=== PATIENT | female | born 1965 | race Caucasian/White ===

== ENCOUNTER → 2016-08-07 | Outpatient (REF) | payer OTHER ==
[2016-08-07 12:18] LABS: ALBUMIN 3.4 GM/DL (3.2-5.2); ALBUMIN/GLOBULIN RATIO 0.89 (1.00-1.93); BILIRUBIN,TOTAL 0.5 MG/DL (0.2-1.0); CALCIUM LEVEL 8.3 MG/DL (8.5-10.1); CREATININE FOR GFR 1.16 MG/DL (0.55-1.02); FREE T4 1.37 NG/DL (0.76-1.46); GLOMERULAR FILTRATION RATE 52.2 (>51); POTASSIUM SERUM 4.4 MEQ/L (3.5-5.1); TOTAL PROTEIN 7.2 GM/DL (6.4-8.2)
== END | disposition home or self-care (01) ==
LOC: M SFHCPLAZ 08:09
PROVIDERS: ATTEND Nurse Practitioner Family
DX: E78.2 Mixed hyperlipidemia (principal); E03.9 Hypothyroidism, unspecified; E83.42 Hypomagnesemia

== ENCOUNTER → 2016-11-10 | Outpatient (REF) | payer OTHER ==
[2016-11-10 12:50] LABS: ALBUMIN 3.7 GM/DL (3.2-5.2); ALBUMIN/GLOBULIN RATIO 1.09 (1.00-1.93); BILIRUBIN,TOTAL 0.7 MG/DL (0.2-1.0); CALCIUM LEVEL 9.3 MG/DL (8.5-10.1); CREATININE FOR GFR 1.14 MG/DL (0.55-1.02); FREE T4 1.44 NG/DL (0.76-1.46); GLOMERULAR FILTRATION RATE 53.3 (>51); MAGNESIUM LEVEL 2.2 MG/DL (1.8-2.4); POTASSIUM SERUM 4.5 MEQ/L (3.5-5.1); TOTAL PROTEIN 7.1 GM/DL (6.4-8.2)
== END ==
LOC: M SFHCPLAZ 09:39
PROVIDERS: ATTEND Nurse Practitioner Family
DX: E78.2 Mixed hyperlipidemia (principal); E03.9 Hypothyroidism, unspecified; E83.42 Hypomagnesemia

== ENCOUNTER → 2016-11-10 | Outpatient (REF) | payer OTHER ==
[2016-11-10 12:51] LABS: ALBUMIN 3.6 GM/DL (3.2-5.2); ALBUMIN/GLOBULIN RATIO 1.03 (1.00-1.93); BILIRUBIN,TOTAL 0.7 MG/DL (0.2-1.0); CALCIUM LEVEL 9.3 MG/DL (8.5-10.1); CREATININE FOR GFR 1.15 MG/DL (0.55-1.02); GLOMERULAR FILTRATION RATE 52.8 (>51); POTASSIUM SERUM 4.4 MEQ/L (3.5-5.1); TOTAL PROTEIN 7.1 GM/DL (6.4-8.2)
[2016-11-10 12:59] LABS: BASO % 0.5 % (0.0-1.0); EOS # 0.2 K/mm3 (0.0-0.50); EOS % 2.2 % (0.0-3.0); LARGE UNSTAINED CELL # 0.2 K/mm3 (0.0-0.4); LARGE UNSTAINED CELL % 1.8 % (0.0-4.0); LYMPH # 2.3 K/mm3 (1.5-4.5); LYMPH % 28.9 % (24.0-44.0); MEAN CORPUSCULAR HEMOGLOBIN 30.2 pg (27.0-33.0); MEAN CORPUSCULAR HGB CONC 33.3 g/dl (32.0-36.5); MEAN CORPUSCULAR VOLUME 90.8 fl (80.0-96.0); MONO # 0.5 K/mm3 (0.0-0.8); MONO % 5.6 % (0.0-5.0); NEUTROPHILS # 4.8 K/mm3 (1.8-7.7); NEUTROPHILS % 60.9 % (36.0-66.0); PLATELET COUNT, AUTOMATED 253 k/mm3 (150-450)
[2016-11-10 13:29] LABS: ERYTHROCYTE SEDIMENTATION RATE 22 mm/hr (0-30)
== END ==
LOC: M LAB REF 09:00
PROVIDERS: ATTEND Internal Medicine Rheumatology
DX: M05.79 Rheumatoid arthritis with rheumatoid factor of multiple sites without organ or systems involvement (principal)

== ENCOUNTER → 2017-05-09 | Outpatient (REF) | payer OTHER ==
[2017-05-09 12:26] LABS: FOLATE > 24.0 NG/ML; VITAMIN B12 LEVEL 1609 PG/ML
[2017-05-09 12:35] LABS: ALBUMIN 3.6 GM/DL (3.2-5.2); ALBUMIN/GLOBULIN RATIO 1.06 (1.00-1.93); ALKALINE PHOSPHATASE 92 U/L (45-117); ALT/SGPT 31 U/L (12-78); ANION GAP 6 MEQ/L (8-16); AST/SGOT 19 U/L (15-37); BILIRUBIN,TOTAL 0.5 MG/DL (0.2-1.0); BLOOD UREA NITROGEN 16 MG/DL (7-18); CALCIUM LEVEL 9.1 MG/DL (8.5-10.1); CARBON DIOXIDE LEVEL 28 MEQ/L (21-32); CHLORIDE LEVEL 110 MEQ/L (98-107); CHOLESTEROL LEVEL 209 MG/DL (<200); CREATININE FOR GFR 1.14 MG/DL (0.55-1.02); FREE T4 1.37 NG/DL (0.76-1.46); GLOMERULAR FILTRATION RATE 53.1 (>51); GLUCOSE, FASTING 69 MG/DL (70-105); MAGNESIUM LEVEL 2.1 MG/DL (1.8-2.4); POTASSIUM SERUM 4.2 MEQ/L (3.5-5.1); SODIUM LEVEL 144 MEQ/L (136-145); TRIGLYCERIDES LEVEL 154 MG/DL (<150)
== END ==
LOC: M SFHCPLAZ 08:02
PROVIDERS: ATTEND Nurse Practitioner Family
DX: E78.2 Mixed hyperlipidemia (principal); E03.9 Hypothyroidism, unspecified; E83.42 Hypomagnesemia; Z98.84 Bariatric surgery status

== ENCOUNTER → 2018-03-13 | Outpatient (CLI) | payer BC | LOC: M WHC 13:10 | DX: Z12.31 Encounter for screening mammogram for malignant neoplasm of breast (principal) | CPT/HCPCS: 77067 ==

== ENCOUNTER → 2018-03-13 | Outpatient (REF) | payer OTHER ==
[2018-03-15 14:46] LABS: HPV HYBRID CAPTURE II Negative (Negative)
== END ==
LOC: M SFHCWAGY 13:42
DX: Z12.4 Encounter for screening for malignant neoplasm of cervix (principal)
CPT/HCPCS: G0123

== ENCOUNTER → 2018-05-09 | Outpatient (REF) | payer OTHER ==
[2018-05-09 14:18] LABS: ALBUMIN 3.5 GM/DL (3.2-5.2); ALBUMIN/GLOBULIN RATIO 0.97 (1.00-1.93); ALKALINE PHOSPHATASE 113 U/L (45-117); ALT/SGPT 36 U/L (12-78); ANION GAP 7 MEQ/L (8-16); AST/SGOT 26 U/L (7-37); BILIRUBIN,TOTAL 0.6 MG/DL (0.2-1.0); BLOOD UREA NITROGEN 15 MG/DL (7-18); CALCIUM LEVEL 8.7 MG/DL (8.5-10.1); CARBON DIOXIDE LEVEL 26 MEQ/L (21-32); CHLORIDE LEVEL 111 MEQ/L (98-107); CHOLESTEROL LEVEL 197 MG/DL (<200); CHOLESTEROL RISK RATIO 3.581 (<5); CREATININE FOR GFR 1.34 MG/DL (0.55-1.30); GLOMERULAR FILTRATION RATE 43.9 (>51); GLUCOSE, FASTING 72 MG/DL (70-100); HDL CHOLESTEROL 55 MG/DL (>40); LDL CHOLESTEROL 113 MG/DL (<100); MAGNESIUM LEVEL 2.2 MG/DL (1.8-2.4); NON-HDL-C 142 MG/DL; POTASSIUM SERUM 4.7 MEQ/L (3.5-5.1); SODIUM LEVEL 144 MEQ/L (136-145); TOTAL 25(OH) VITAMIN D 43.6 NG/ML (30.0-100.0); TOTAL PROTEIN 7.1 GM/DL (6.4-8.2); TRIGLYCERIDES LEVEL 145 MG/DL (<150); VITAMIN B12 LEVEL > 2000.0 PG/ML
[2018-05-09 22:45] LABS: FOLATE > 24.0 NG/ML
== END ==
LOC: M SFHCPLAZ 08:05
DX: E78.2 Mixed hyperlipidemia (principal); E03.9 Hypothyroidism, unspecified; E83.42 Hypomagnesemia; Z98.84 Bariatric surgery status
CPT/HCPCS: 82746

== ENCOUNTER → 2019-03-14 | Outpatient (CLI) | payer BC ==
--- NOTE | 2019-03-14 15:55 | REPMRS ---
Patient History The patient states she had a clinical breast exam in 02/2019. Patient is postmenopausal and is nulliparous. Family history of breast cancer at age 56 in sister. Digital Woman Screen Mammo: March 14, 2019 - Exam #: [id number] Bilateral CC and MLO view(s) were taken. Technologist: Paula Montalvo Technologist Prior study comparison: March 13, 2018, bilateral digital woman screen mammo performed at [facility]. September 24, 2014, digital woman screen mammo performed at [facility]. May 07, 2012, digital woman screen mammo performed at [facility]. FINDINGS: There are scattered fibroglandular densities. There has been no change in the appearance of the mammogram from the prior studies. There is a mild amount of scattered fibroglandular density which is fairly symmetric. There is no interval development of dominant mass, architectural distortion, or grouped microcalcification suggestive of malignancy. 3-D tomosynthesis shows no additional findings. Assessment: BI-RADS/ACR category 1 mammogram. Negative Mammogram. Recommendation Routine screening mammogram of both breasts in 1 year (for women over age 40). This patient's Lifetime Breast Cancer Risk is estimated at 18.9 %. This mammogram was interpreted with the aid of an FDA-approved computer-aided dectection system. Electronically Signed By: Aiden Patel MD 03/14/19 [id number]
== END ==
LOC: M WHC 13:27
PROVIDERS: ATTEND Nurse Practitioner Women's Health
DX: Z12.31 Encounter for screening mammogram for malignant neoplasm of breast (principal)

== ENCOUNTER → 2019-05-14 | Outpatient (REF) | payer OTHER ==
[2019-05-14 11:20] LABS: ALBUMIN 3.5 GM/DL (3.2-5.2); BILIRUBIN,TOTAL 0.7 MG/DL (0.2-1.0); CALCIUM LEVEL 8.9 MG/DL (8.5-10.1); CHOLESTEROL RISK RATIO 3.965 (<5); CREATININE FOR GFR 1.24 MG/DL (0.55-1.30); FREE T4 1.21 NG/DL (0.76-1.46); GLOMERULAR FILTRATION RATE 47.8 (>51); POTASSIUM SERUM 4.1 MEQ/L (3.5-5.1); THYROID STIMULATING HORMONE 3.13 uIU/ML (0.358-3.740); TOTAL PROTEIN 6.8 GM/DL (6.4-8.2)
== END ==
LOC: M SFHCPLAZ 07:56
PROVIDERS: ATTEND Nurse Practitioner Family
DX: N18.3 Chronic kidney disease, stage 3 (moderate) (principal); E03.9 Hypothyroidism, unspecified; E78.2 Mixed hyperlipidemia

== ENCOUNTER → 2019-09-08 | Outpatient (CLI) | payer BC, OTHER ==
[~2019-09-08] MED LIST: PROHANCE 279.3MG/ML 15ML VIAL (A9576) As Ordered ONE; PROHANCE 279.3MG/ML 5ML VIAL (A9576) As Ordered ONE
--- NOTE | 2019-09-08 13:06 | REP ---
Bilateral breast MRI study without and with IV gadolinium: History: Positive family history of breast carcinoma. Screening exam. Comparison mammography March 14, 2019. Technique: Three [place] MRI imaging was performed with a dedicated breast coil. Axial, coronal, and sagittal T1 and T2-weighted scans were obtained with and without fat saturation in the usual fashion. The study includes dynamically acquired post gadolinium enhanced imaging subtraction imaging. Maximal intensity projection and multiplanar re-formation imaging is included as well. The study was interpreted with the aid of naayaD, an FDA approved computer-aided detection (CAD) software program, on a dedicated breast MRI work station. The gadolinium enhancement dose is 20 mL of intravenous ProHance. Findings: Scattered fibroglandular elements is seen bilaterally. There is a mild pattern of background parenchymal enhancement. There is no evidence of axillary adenopathy or breast cystic changes. There is no suspicious morphologic abnormality in either breast on high-resolution pre and postcontrast images. Dynamically acquired sequential post contrast images show no suspicious area of enhancement and/or washout in either breast to suggest malignancy. Subtraction images are unremarkable. Impression: BIRADS category 1 negative bilateral breast MRI scanning. Electronically Signed by Merrill Patel MD 09/08/2019 05:25 P
== END ==
LOC: M RAD 09:31
PROVIDERS: ATTEND Nurse Practitioner Women's Health
DX: Z80.3 Family history of malignant neoplasm of breast (principal)
CPT/HCPCS: A9576; C8908

== ENCOUNTER → 2019-11-14 | Outpatient (REF) | payer OTHER ==
[2019-11-14 10:42] LABS: ALBUMIN 3.6 GM/DL (3.2-5.2); BILIRUBIN,TOTAL 0.7 MG/DL (0.2-1.0); CALCIUM LEVEL 9.4 MG/DL (8.5-10.1); CHOLESTEROL RISK RATIO 3.964 (<5); CREATININE FOR GFR 1.34 MG/DL (0.55-1.30); FREE T4 1.36 NG/DL (0.76-1.46); GLOMERULAR FILTRATION RATE 43.7 (>51); POTASSIUM SERUM 4.1 MEQ/L (3.5-5.1); THYROID STIMULATING HORMONE 2.42 uIU/ML (0.358-3.740); TOTAL PROTEIN 7.2 GM/DL (6.4-8.2)
[2019-11-14 10:56] LABS: MALB URINE SIEMENS 24.3 MG/L; MAU/CREAT RATIO 12.7 MCG/MG (0.0-30.0)
== END ==
LOC: M PLALAB 08:52
PROVIDERS: ATTEND Nurse Practitioner Family
DX: E78.2 Mixed hyperlipidemia (principal); E03.9 Hypothyroidism, unspecified; E83.42 Hypomagnesemia; N18.3 Chronic kidney disease, stage 3 (moderate)

== ENCOUNTER → 2019-11-24 | Outpatient (REF) | payer OTHER | LOC: M SFHCPLAZ 10:44 | PROVIDERS: ATTEND Nurse Practitioner Family | DX: M79.89 Other specified soft tissue disorders (principal) ==

== ENCOUNTER → 2019-11-25 | Outpatient (CLI) | payer BC, OTHER ==
--- NOTE | 2019-11-25 08:55 | REP ---
Duplex extremity venous ultrasound: Lower extremity. History: Swelling of the left leg. Findings: The deep veins are anechoic and fully compressible from the groin to the popliteal fossa in the left lower extremity. Color flow imaging is homogeneous. Spectral Doppler interrogation demonstrates intact respiratory variation in flow and normal manual augmentation of flow. There is no evidence of deep vein thrombosis. Impression: Negative left lower extremity duplex venous ultrasound. No evidence of deep vein thrombosis. Electronically Signed by Merrill Patel MD 11/25/2019 08:47 A
== END ==
LOC: M RAD 08:08
PROVIDERS: ATTEND Nurse Practitioner Family
DX: M79.89 Other specified soft tissue disorders (principal)

== ENCOUNTER → 2020-01-05 | Outpatient (CLI) | payer BC, OTHER ==
[2020-01-05 13:58] LABS: BASO # 0.1 10^3/uL (0.0-0.2); EOS # 0.2 10^3/uL (0.0-0.5); EOS % 2.2 % (0.0-3.0); HEMATOCRIT 40.8 % (36.0-47.0); HEMOGLOBIN 13.7 g/dl (12.0-15.5); LYMPH # 1.9 10^3/uL (1.5-5.0); LYMPH % 26.3 % (24.0-44.0); MEAN CORPUSCULAR HEMOGLOBIN 31.9 pg (27.0-33.0); MEAN CORPUSCULAR HGB CONC 33.6 g/dl (32.0-36.5); MEAN CORPUSCULAR VOLUME 95.1 fl (80.0-96.0); MONO # 0.6 10^3/uL (0.0-0.8); NEUTROPHILS # 4.5 10^3/uL (1.5-8.5); NEUTROPHILS % 61.9 % (36.0-66.0); PLATELET COUNT, AUTOMATED 282 10^3/uL (150-450); RED BLOOD COUNT 4.29 10^6/uL (4.00-5.40); WHITE BLOOD COUNT 7.2 10^3/uL (4.0-10.0)
[2020-01-05 14:19] LABS: ERYTHROCYTE SEDIMENTATION RATE 27 mm/hr (0-30)
[2020-01-05 14:48] LABS: ALBUMIN 3.7 GM/DL (3.2-5.2); CALCIUM LEVEL 9.6 MG/DL (8.5-10.1); CREATININE FOR GFR 1.35 MG/DL (0.55-1.30); GLOMERULAR FILTRATION RATE 43.3 (>51); POTASSIUM SERUM 4.5 MEQ/L (3.5-5.1); TOTAL PROTEIN 6.8 GM/DL (6.4-8.2)
== END ==
LOC: M PLALAB 09:55
PROVIDERS: ATTEND Nurse Practitioner
DX: M05.79 Rheumatoid arthritis with rheumatoid factor of multiple sites without organ or systems involvement (principal)

== ENCOUNTER → 2020-02-05 | Outpatient (CLI) | payer BC, OTHER ==
--- NOTE | 2020-02-05 15:47 | REP ---
RENAL ULTRASOUND: REASON: Chronic kidney disease. History of rheumatoid arthritis. COMPARISON: None. FINDINGS: Multiple ultrasonographic images of the left kidney show the left kidney to measure 10.9 x 3.6 x 4.5 cm with an RI of 0.53. The renal cortical echotexture is unremarkable. There are no masses. There is good corticomedullary differentiation. There is no hydronephrosis. There are no perinephric fluid collections. Multiple ultrasonographic images of the right kidney show the right kidney to measure 9.4 x 4.9 x 3.5 cm. The renal cortical echoes are within normal limits, however, there is a multi-septated mixed but predominantly anechoic structure seen arising from the lower pole of the right kidney which measures approximately 2.8 x 2.5 x 3.3 cm. IMPRESSION: Complex cystic structure arising from the inferior pole of the right kidney as described above. Pre- and post contrast enhanced renal CT is recommended.
== END ==
LOC: M WHC 11:03
PROVIDERS: ATTEND Internal Medicine Nephrology
DX: N18.3 Chronic kidney disease, stage 3 (moderate) (principal)

== ENCOUNTER → 2020-03-15 | Outpatient (CLI) | payer BC ==
--- NOTE | 2020-03-30 16:41 | REPMRS ---
Patient History The patient states she had a clinical breast exam in February 2020. Patient is postmenopausal and is nulliparous. Family history of breast cancer at age 56 in sister. Digital Woman Screen Mammo: March 15, 2020 - Exam #: [id number] Bilateral CC and MLO view(s) were taken. Technologist: Danni Nagy, Technologist Prior study comparison: March 14, 2019, bilateral digital woman screen mammo performed at [facility]. March 13, 2018, bilateral digital woman screen mammo performed at [facility]. September 24, 2014, digital woman screen mammo performed at [facility]. FINDINGS: There are scattered fibroglandular densities. The Volpara volumetric breast density category is:B. There has been no change in the appearance of the mammogram from the prior studies. There is a mild amount of scattered fibroglandular density which is fairly symmetric. There is no interval development of dominant mass, architectural distortion, or grouped microcalcification suggestive of malignancy. 3-D tomosynthesis shows no additional findings. Assessment: BI-RADS/ACR category 1 mammogram. Negative Mammogram. Recommendation Routine screening mammogram of both breasts in 1 year (for women over age 40). This patient's Lifetime Breast Cancer Risk is estimated at 18.5 %. This mammogram was interpreted with the aid of an FDA-approved computer-aided dectection system. Electronically Signed By: Aiden Patel MD 03/30/20 [id number]
== END ==
LOC: M WHC 16:58
PROVIDERS: ATTEND Nurse Practitioner Women's Health
DX: Z12.31 Encounter for screening mammogram for malignant neoplasm of breast (principal); Z78.0 Asymptomatic menopausal state; Z80.3 Family history of malignant neoplasm of breast

== ENCOUNTER → 2020-03-15 | Outpatient (REF) | payer OTHER, BC | LOC: M SFHCWAGY 12:59 | PROVIDERS: ATTEND Nurse Practitioner Women's Health | DX: Z12.4 Encounter for screening for malignant neoplasm of cervix (principal) ==

== ENCOUNTER → 2020-05-04 | Outpatient (REF) | payer BC, OTHER ==
[2020-05-04 19:00] LABS: ALBUMIN 3.5 GM/DL (3.2-5.2); BILIRUBIN,TOTAL 0.6 MG/DL (0.2-1.0); CALCIUM LEVEL 9.4 MG/DL (8.5-10.1); CREATININE FOR GFR 1.39 MG/DL (0.55-1.30); GLOMERULAR FILTRATION RATE 41.8 (>51); POTASSIUM SERUM 4.8 MEQ/L (3.5-5.1); TOTAL PROTEIN 6.9 GM/DL (6.4-8.2)
== END ==
LOC: M LAB REF 18:06
PROVIDERS: ATTEND Internal Medicine Rheumatology
DX: M05.79 Rheumatoid arthritis with rheumatoid factor of multiple sites without organ or systems involvement (principal); Z79.899 Other long term (current) drug therapy

== ENCOUNTER → 2020-05-12 | Outpatient (CLI) | payer BC, OTHER ==
[~2020-05-12] MED LIST changes: +ISOVUE-370 76% 100ML VIAL As Ordered ONE; -PROHANCE 279.3MG/ML 15ML VIAL (A9576) As Ordered ONE; -PROHANCE 279.3MG/ML 5ML VIAL (A9576) As Ordered ONE
--- NOTE | 2020-05-17 07:30 | REP ---
PRE- AND POSTCONTRAST CT OF THE ABDOMEN CLINICAL: Irregular right renal lesion by ultrasound. TECHNIQUE: Axial precontrast arterial phase, venous phase, and delayed phase images of the abdomen using 100 mL of Isovue-370 intravenous contrast material with coronal and sagittal reformations. FINDINGS: There is a 3.6 cm complex cystic lesion arising from the right kidney, which demonstrates perceptible enhancing irregular septa, as well as possible small amounts of enhancing mural soft tissue. The lesion should be classified as Bosniak 3 cyst. The bilateral kidneys are otherwise symmetric and demonstrate mild cortical thinning without perinephric stranding or hydroureteronephrosis and no obvious nephroureterolithiasis. The liver includes a subtle 1.5 cm hypodense lesion along the lateral aspect of the lower right lobe, which demonstrates discontinuous peripheral enhancement paralleling the aorta and suggesting small hemangioma (Image 54). Spleen, pancreas, collapsed gallbladder, and bilateral adrenal glands are normal. Visualized enteric system demonstrates prior gastric bypass surgery. No ascites, inflammatory stranding, or adenopathy noted in the visualized abdomen. Abdominal aorta and vasculature appear relatively normal. Lung bases are clear. IMPRESSION: A 3.6 cm Bosniak 3 cyst in the right kidney. Urology consultation is recommended. MTDD
== END ==
LOC: M RAD 14:32
PROVIDERS: ATTEND Internal Medicine Nephrology
DX: N18.3 Chronic kidney disease, stage 3 (moderate) (principal)

== ENCOUNTER → 2020-07-29 | Outpatient (REF) | payer OTHER ==
[2020-07-29 16:30] LABS: ALBUMIN 3.5 GM/DL (3.2-5.2); BILIRUBIN,TOTAL 0.5 MG/DL (0.2-1.0); CALCIUM LEVEL 9.2 MG/DL (8.5-10.1); CREATININE FOR GFR 1.53 MG/DL (0.55-1.30); FREE T4 1.33 NG/DL (0.76-1.46); GLOMERULAR FILTRATION RATE 37.4 (>51); MAGNESIUM LEVEL 2.2 MG/DL (1.8-2.4); POTASSIUM SERUM 4.4 MEQ/L (3.5-5.1); THYROID STIMULATING HORMONE 1.19 uIU/ML (0.358-3.740); TOTAL PROTEIN 7.1 GM/DL (6.4-8.2)
== END ==
LOC: M SFHCPLAZ 12:22
PROVIDERS: ATTEND Nurse Practitioner Family
DX: K21.9 Gastro-esophageal reflux disease without esophagitis (principal); E03.9 Hypothyroidism, unspecified; E83.42 Hypomagnesemia

== ENCOUNTER → 2020-08-31 | Outpatient (CLI) | payer BC, OTHER ==
[~2020-08-31] MED LIST changes: +ATOR1TAB21 PO; +B-122500 PO; +CALTCHW5 PO; +FAMO20TA PO; +FISH1000 PO; +FOLI1TAB11 PO; -ISOVUE-370 76% 100ML VIAL As Ordered ONE; +LEFL1TAB4 PO; +METH2.5T48 PO; +PRED5PAK PO; +SYNT112T2 PO; +VITAMIN D PO; +VITMTA PO
[2020-08-31 08:00] LABS: APPEARANCE, URINE CLEAR (CLEAR); BACTERIA, URINE AUTO NEGATIVE (NEGATIVE); BILIRUBIN, URINE AUTO NEGATIVE (NEGATIVE); BLOOD, URINE BLOOD NEGATIVE (NEGATIVE); COLOR, URINE YELLOW (YELLOW); GLUCOSE, URINE (UA) AUTO NEGATIVE (NEGATIVE); KETONE, URINE AUTO NEGATIVE (NEGATIVE); LEUKOCYTE ESTERASE, URINE AUTO NEGATIVE (NEGATIVE); MUCUS, URINE SMALL (NEGATIVE); NITRITE, URINE AUTO NEGATIVE (NEGATIVE); PROTEIN, URINE AUTO NEGATIVE (NEGATIVE); RBC, URINE AUTO 1 /HPF (0-3); SPECIFIC GRAVITY URINE AUTO 1.013 (1.002-1.035); SQUAMOUS EPITHELIAL CELL UR AU 1 /HPF (0-6); UROBILINOGEN, URINE AUTO 0.2 mg/dL (0.0-2.0); WBC, URINE AUTO 2 /HPF (0-3)
[2020-08-31 08:01] LABS: HEMATOCRIT 41.1 % (36.0-47.0); HEMOGLOBIN 13.7 g/dl (12.0-15.5); MEAN CORPUSCULAR HEMOGLOBIN 30.7 pg (27.0-33.0); MEAN CORPUSCULAR HGB CONC 33.3 g/dl (32.0-36.5); MEAN CORPUSCULAR VOLUME 92.2 fl (80.0-96.0); PLATELET COUNT, AUTOMATED 259 10^3/uL (150-450); RED BLOOD COUNT 4.46 10^6/uL (4.00-5.40); WHITE BLOOD COUNT 6.9 10^3/uL (4.0-10.0)
[2020-08-31 08:33] LABS: CALCIUM LEVEL 9.2 MG/DL (8.5-10.1); CREATININE FOR GFR 1.31 MG/DL (0.55-1.30); GLOMERULAR FILTRATION RATE 44.7 (>51); POTASSIUM SERUM 4.7 MEQ/L (3.5-5.1)
[2020-08-31 11:47] LABS: CORTISOL AM 5.7 UG/DL (4.3-22.4)
== END ==
LOC: M LAB 06:39
PROVIDERS: ATTEND Family Medicine
DX: Z01.818 Encounter for other preprocedural examination (principal)

== ENCOUNTER 2020-09-01 07:38 | Outpatient (CLI) | payer BC, OTHER ==
[~2020-09-01] VITALS: Ht 165.1 cm; Wt 102.0 kg
[2020-09-01 07:40] VITALS: BP 135/80
[2020-09-01] MEDS ORDERED: COSYNTROPIN 0.25 MG/ML VIAL (J0834 PER 0.25MG) IV ONE (08:30)
[2020-09-01] MEDS ORDERED: FOLI1TAB11 PO (08:31)
[2020-09-01] MEDS ORDERED: ATOR1TAB21 PO (08:37)
[2020-09-01] MEDS ORDERED: FAMO20TA PO (08:37)
[2020-09-01] MEDS ORDERED: LEFL1TAB4 PO (08:37)
[2020-09-01] MEDS ORDERED: VITAMIN D PO (08:37)
[2020-09-01] MEDS ORDERED: PRED5PAK PO (08:37)
[2020-09-01] MEDS ORDERED: METH2.5T48 PO (08:37)
[2020-09-01] MEDS ORDERED: CALTCHW5 PO (08:37)
[2020-09-01] MEDS ORDERED: SYNT112T2 PO (08:37)
[2020-09-01] MEDS ORDERED: VITMTA PO (08:38)
[2020-09-01] MEDS ORDERED: B-122500 PO (08:40)
[2020-09-01] MEDS ORDERED: FISH1000 PO (08:40)
[2020-09-01 09:35] VITALS: BP 123/58
== END 2020-09-01 09:35 | disposition home or self-care (01) ==
LOC: M INFU 07:38
PROVIDERS: ATTEND Family Medicine
DX: Z79.52 Long term (current) use of systemic steroids (principal)
CPT/HCPCS: 36592; 82533; 96375; J0834

== ENCOUNTER → 2020-11-18 | Outpatient (REF) | payer OTHER ==
[2020-11-18 11:23] LABS: ALBUMIN 3.5 GM/DL (3.2-5.2); BILIRUBIN,TOTAL 0.6 MG/DL (0.2-1.0); CHOLESTEROL RISK RATIO 3.396 (<5); CREATININE FOR GFR 1.53 MG/DL (0.55-1.30); FREE T4 1.23 NG/DL (0.76-1.46); GLOMERULAR FILTRATION RATE 37.4 (>51); POTASSIUM SERUM 4.5 MEQ/L (3.5-5.1); THYROID STIMULATING HORMONE 0.904 uIU/ML (0.358-3.740); TOTAL PROTEIN 6.6 GM/DL (6.4-8.2)
== END ==
LOC: M PLALAB 09:06
PROVIDERS: ATTEND Nurse Practitioner Family
DX: E78.2 Mixed hyperlipidemia (principal); E03.9 Hypothyroidism, unspecified

== ENCOUNTER → 2020-12-15 | Outpatient (REF) | payer OTHER ==
[2020-12-15 15:38] LABS: CALCIUM LEVEL 8.9 MG/DL (8.5-10.1); CREATININE FOR GFR 1.75 MG/DL (0.55-1.30); POTASSIUM SERUM 4.7 MEQ/L (3.5-5.1)
== END ==
LOC: M PLALAB 15:04
PROVIDERS: ATTEND Urology
DX: C64.1 Malignant neoplasm of right kidney, except renal pelvis (principal)

== ENCOUNTER → 2021-03-21 | Outpatient (CLI) | payer BC, OTHER ==
--- NOTE | 2021-03-21 10:11 | REPMRS ---
Patient History The patient states she has not had a clinical breast exam in over a year. Patient is postmenopausal and is nulliparous. Family history of breast cancer at age 56 in sister. Took hormonal contraceptives for 12 years. Tomosynthesis is performed. Volpara breast density is b. [facility] lifetime risk of breast cancer 18.1%. Moderna vaccine 09/28/20 left arm. 10/26/20 left arm. Patient states no breast complaints today. Patient has signed MRS History Sheet. Digital Woman Screen Mammo: March 21, 2021 - Exam #: [id number] Bilateral CC and MLO view(s) were taken. Technologist: RT Shavon Prior study comparison: March 15, 2020, bilateral digital woman screen mammo performed at [facility]. March 14, 2019, bilateral digital woman screen mammo performed at [facility]. FINDINGS: There are scattered fibroglandular densities. There has been no change in the appearance of the mammogram from the prior studies. There is a mild amount of residual fibroglandular tissue which is fairly symmetric. There is no interval development of dominant mass, architectural distortion, or clustered microcalcification suggestive of malignancy. Assessment: BI-RADS/ACR category 1 mammogram. Negative Mammogram. Recommendation Routine screening mammogram in 1 year (for women over age 40). This mammogram was interpreted with the aid of an FDA-approved computer-aided dectection system. Electronically Signed By: Valentin Stanley MD 03/21/21 1011
== END ==
LOC: M WHC 08:58
PROVIDERS: ATTEND Nurse Practitioner Women's Health
DX: Z12.31 Encounter for screening mammogram for malignant neoplasm of breast (principal); Z80.3 Family history of malignant neoplasm of breast

== ENCOUNTER → 2021-05-19 | Outpatient (CLI) | payer BC, OTHER ==
[2021-05-19 11:10] LABS: ALBUMIN 3.2 GM/DL (3.2-5.2); BILIRUBIN,TOTAL 0.6 MG/DL (0.2-1.0); CALCIUM LEVEL 8.9 MG/DL (8.5-10.1); CREATININE FOR GFR 1.67 MG/DL (0.55-1.30); GLOMERULAR FILTRATION RATE 33.7 (>51); MAGNESIUM LEVEL 2.3 MG/DL (1.8-2.4); POTASSIUM SERUM 4.6 MEQ/L (3.5-5.1); THYROID STIMULATING HORMONE 2.56 uIU/ML (0.358-3.740); TOTAL PROTEIN 6.9 GM/DL (6.4-8.2)
== END ==
LOC: M PLALAB 08:20
PROVIDERS: ATTEND Nurse Practitioner Family
DX: E03.9 Hypothyroidism, unspecified (principal)

== ENCOUNTER → 2021-05-31 | Outpatient (REF) | payer BC, OTHER | LOC: M LAB REF 17:15 | PROVIDERS: ATTEND Internal Medicine Nephrology | DX: N18.32 Chronic kidney disease, stage 3b (principal) ==

== ENCOUNTER → 2021-08-26 | Outpatient (CLI) | payer BC, OTHER ==
[2021-08-26 10:49] LABS: BASO # 0.1 10^3/uL (0.0-0.2); BASO % 0.8 % (0.0-1.0); EOS # 0.2 10^3/uL (0.0-0.5); EOS % 2.2 % (0.0-3.0); HEMATOCRIT 43.8 % (36.0-47.0); HEMOGLOBIN 14.4 g/dl (12.0-15.5); LYMPH # 2.3 10^3/uL (1.5-5.0); LYMPH % 23.6 % (24.0-44.0); MEAN CORPUSCULAR HEMOGLOBIN 30.8 pg (27.0-33.0); MEAN CORPUSCULAR HGB CONC 32.9 g/dl (32.0-36.5); MEAN CORPUSCULAR VOLUME 93.8 fl (80.0-96.0); MONO # 0.8 10^3/uL (0.0-0.8); MONO % 8.6 % (2.0-8.0); NEUTROPHILS # 6.2 10^3/uL (1.5-8.5); NEUTROPHILS % 64.2 % (36.0-66.0); PLATELET COUNT, AUTOMATED 262 10^3/uL (150-450); RED BLOOD COUNT 4.67 10^6/uL (4.00-5.40); WHITE BLOOD COUNT 9.6 10^3/uL (4.0-10.0)
[2021-08-26 11:08] LABS: ERYTHROCYTE SEDIMENTATION RATE 32 mm/hr (0-30)
[2021-08-26 11:36] LABS: ALBUMIN 3.7 GM/DL (3.2-5.2); BILIRUBIN,TOTAL 0.6 MG/DL (0.2-1.0); CALCIUM LEVEL 9.6 MG/DL (8.5-10.1); CREATININE FOR GFR 1.81 MG/DL (0.55-1.30); GLOMERULAR FILTRATION RATE 30.7 (>51); POTASSIUM SERUM 4.3 MEQ/L (3.5-5.1); TOTAL PROTEIN 6.9 GM/DL (6.4-8.2)
== END ==
LOC: M PLALAB 08:25
PROVIDERS: ATTEND Internal Medicine Rheumatology
DX: M05.79 Rheumatoid arthritis with rheumatoid factor of multiple sites without organ or systems involvement (principal); Z79.899 Other long term (current) drug therapy

== ENCOUNTER → 2021-09-13 | Outpatient (CLI) | payer BC, OTHER ==
[2021-09-13 11:34] LABS: CALCIUM LEVEL 9.3 MG/DL (8.5-10.1); CREATININE FOR GFR 1.81 MG/DL (0.55-1.30); GLOMERULAR FILTRATION RATE 30.7 (>51); POTASSIUM SERUM 3.9 MEQ/L (3.5-5.1)
== END ==
LOC: M RAD 10:08
PROVIDERS: ATTEND Urology
DX: Z85.528 Personal history of other malignant neoplasm of kidney (principal)

== ENCOUNTER → 2021-10-31 | Outpatient (CLI) | payer BC, OTHER ==
[2021-10-31 14:37] LABS: ALBUMIN 3.6 GM/DL (3.2-5.2); BILIRUBIN,TOTAL 0.6 MG/DL (0.2-1.0); CALCIUM LEVEL 9.6 MG/DL (8.5-10.1); CHOLESTEROL RISK RATIO 3.932 (<5); CREATININE FOR GFR 1.85 MG/DL (0.55-1.30); GLOMERULAR FILTRATION RATE 29.9 (>51); POTASSIUM SERUM 4.3 MEQ/L (3.5-5.1); THYROID STIMULATING HORMONE 1.46 uIU/ML (0.358-3.740); TOTAL PROTEIN 7.1 GM/DL (6.4-8.2)
== END ==
LOC: M PLALAB 10:18
PROVIDERS: ATTEND Nurse Practitioner Adult Health
DX: E78.2 Mixed hyperlipidemia (principal)

== ENCOUNTER → 2021-12-21 | Outpatient (CLI) | payer BC, OTHER | LOC: M RAD 09:06 | PROVIDERS: ATTEND Nurse Practitioner Adult Health | DX: Z87.891 Personal history of nicotine dependence (principal) ==

== ENCOUNTER → 2022-02-07 | Outpatient (REF) | payer BC, OTHER ==
[2022-02-07 21:16] LABS: POTASSIUM SERUM 4.1 MEQ/L (3.5-5.1)
== END ==
LOC: M LAB REF 18:19
PROVIDERS: ATTEND Nurse Practitioner Family
DX: N17.9 Acute kidney failure, unspecified (principal); R60.0 Localized edema; K91.2 Postsurgical malabsorption, not elsewhere classified

== ENCOUNTER → 2022-05-08 | Outpatient (REF) | payer OTHER, BC ==
[~2022-05-08] MED LIST changes: +ATOR40TA75 PO; +HYDR200T3
[2022-05-08 15:16] LABS: ALBUMIN 3.6 GM/DL (3.2-5.2); BILIRUBIN,TOTAL 0.6 MG/DL (0.2-1.0); CALCIUM LEVEL 9.4 MG/DL (8.5-10.1); CHOLESTEROL RISK RATIO 2.63 (<5); CREATININE FOR GFR 1.99 MG/DL (0.55-1.30); GLOMERULAR FILTRATION RATE 27.4 (>51); MAGNESIUM LEVEL 2.4 MG/DL (1.8-2.4); POTASSIUM SERUM 4.2 MEQ/L (3.5-5.1); THYROID STIMULATING HORMONE 1.56 uIU/ML (0.358-3.740); TOTAL PROTEIN 7.3 GM/DL (6.4-8.2)
== END ==
LOC: M PLALAB 13:14
PROVIDERS: ATTEND Nurse Practitioner Adult Health
DX: E03.9 Hypothyroidism, unspecified (principal); E78.2 Mixed hyperlipidemia; E83.42 Hypomagnesemia

== ENCOUNTER → 2022-05-29 | Outpatient (CLI) | payer BC, OTHER | LOC: M WHC 10:02 | PROVIDERS: ATTEND Nurse Practitioner Family | DX: Z12.31 Encounter for screening mammogram for malignant neoplasm of breast (principal) ==

== ENCOUNTER → 2022-10-02 | Outpatient (CLI) | payer BC, OTHER ==
[~2022-10-02] MED LIST changes: +RITU10VLL IV
== END ==
LOC: M PLAIMG 12:20
PROVIDERS: ATTEND Urology
DX: Z85.528 Personal history of other malignant neoplasm of kidney (principal)

== ENCOUNTER → 2022-10-02 | Outpatient (CLI) | payer BC, OTHER ==
[2022-10-02 15:45] LABS: CREATININE FOR GFR 1.58 MG/DL (0.55-1.30); GLOMERULAR FILTRATION RATE 35.8 (>51); POTASSIUM SERUM 4.3 MMOL/L (3.5-5.1)
== END ==
LOC: M PLALAB 12:48
PROVIDERS: ATTEND Urology
DX: Z85.528 Personal history of other malignant neoplasm of kidney (principal)

== ENCOUNTER → 2022-11-27 | Outpatient (CLI) | payer BC, OTHER ==
[2022-11-27 11:18] LABS: ALBUMIN 3.3 G/DL (3.2-5.2); ALKALINE PHOSPHATASE 87 U/L (46-116); ALT/SGPT 26 U/L (7.0-40); AST/SGOT < 8 U/L (<34); BILIRUBIN,TOTAL 0.6 MG/DL (0.3-1.2); BLOOD UREA NITROGEN 25 MG/DL (9-23); CALCIUM LEVEL 9.1 MG/DL (8.5-10.1); CARBON DIOXIDE LEVEL 26 MMOL/L (20-31); CHLORIDE LEVEL 112 MMOL/L (98-107); GLOMERULAR FILTRATION RATE 30.8 (>51); GLUCOSE, FASTING 73 MG/DL (60-100); POTASSIUM SERUM 4.8 MMOL/L (3.5-5.1); SODIUM LEVEL 143 MMOL/L (136-145); TOTAL PROTEIN 6.4 G/DL (5.7-8.2)
== END ==
LOC: M PLALAB 09:03
PROVIDERS: ATTEND Nurse Practitioner Family
DX: D41.01 Neoplasm of uncertain behavior of right kidney (principal)

== ENCOUNTER → 2022-12-12 | Outpatient (CLI) | payer BC, OTHER ==
[~2022-12-12] MED LIST changes: +PROHANCE 279.3MG/ML 15ML VIAL As Ordered ONE; +PROHANCE 279.3MG/ML 5ML VIAL As Ordered ONE
== END ==
LOC: M RAD 08:32
PROVIDERS: ATTEND Nurse Practitioner Family
DX: Z80.3 Family history of malignant neoplasm of breast (principal)

== ENCOUNTER → 2022-12-13 | Outpatient (CLI) | payer BC, OTHER ==
[~2022-12-13] MED LIST changes: -PROHANCE 279.3MG/ML 15ML VIAL As Ordered ONE; -PROHANCE 279.3MG/ML 5ML VIAL As Ordered ONE
[2022-12-13 13:55] LABS: THYROID STIMULATING HORMONE 1.136 uIU/ML (0.55-4.78); TOTAL 25(OH) VITAMIN D 71.1 NG/ML (20.0-100.0)
[2022-12-13 13:56] LABS: ALBUMIN 3.5 G/DL (3.2-5.2); BILIRUBIN,TOTAL 0.6 MG/DL (0.3-1.2); CALCIUM LEVEL 9.7 MG/DL (8.5-10.1); CHOLESTEROL RISK RATIO 2.8 (<5); CREATININE FOR GFR 1.74 MG/DL (0.55-1.30); HDL CHOLESTEROL 67.1 MG/DL (>40); LDL CHOLESTEROL 83.7 MG/DL (<100); MAGNESIUM LEVEL 1.9 MG/DL (1.8-2.4); NON-HDL-C 120.9 MG/DL; POTASSIUM SERUM 4.6 MMOL/L (3.5-5.1); TOTAL PROTEIN 6.5 G/DL (5.7-8.2)
== END ==
LOC: M PLALAB 09:47
PROVIDERS: ATTEND Nurse Practitioner Adult Health
DX: D41.01 Neoplasm of uncertain behavior of right kidney (principal)

== ENCOUNTER → 2023-05-22 | Outpatient (CLI) | payer BC, OTHER ==
[~2023-05-22] MED LIST changes: -HYDR200T3; +HYDR200T46; +PRED1TABL
== END ==
LOC: M PLALAB 08:27
PROVIDERS: ATTEND Nurse Practitioner Adult Health
DX: E03.9 Hypothyroidism, unspecified (principal)

== ENCOUNTER → 2023-05-22 | Outpatient (CLI) | payer BC, OTHER ==
[2023-05-22 11:18] LABS: CHOLESTEROL RISK RATIO 3.63 (<5); HDL CHOLESTEROL 47.3 MG/DL (>40); LDL CHOLESTEROL 89.3 MG/DL (<100); NON-HDL-C 124.7 MG/DL
== END ==
LOC: M PLALAB 08:29
PROVIDERS: ATTEND Internal Medicine Cardiovascular Disease
DX: I25.10 Atherosclerotic heart disease of native coronary artery without angina pectoris (principal)

== ENCOUNTER → 2023-05-30 | Outpatient (CLI) | payer BC, OTHER | LOC: M WHC 09:56 | PROVIDERS: ATTEND Nurse Practitioner Family | DX: Z12.31 Encounter for screening mammogram for malignant neoplasm of breast (principal) ==

== ENCOUNTER → 2023-05-30 | Outpatient (REF) | payer OTHER, BC | LOC: M SFHCWAGY 17:31 | PROVIDERS: ATTEND Nurse Practitioner Family | DX: Z12.4 Encounter for screening for malignant neoplasm of cervix (principal) | CPT/HCPCS: 87624; G0123 ==

== ENCOUNTER → 2023-07-20 | Outpatient (CLI) | payer OTHER, BC | LOC: M WUC 12:40 | PROVIDERS: ATTEND Internal Medicine Rheumatology | DX: Z53.9 Procedure and treatment not carried out, unspecified reason (principal) ==

== ENCOUNTER → 2023-09-13 | Outpatient (CLI) | payer BC, OTHER ==
[~2023-09-13] MED LIST changes: +EZET10TA21 PO; -LEFL1TAB4 PO; +LEFL20TA15 PO; +MULT-193 PO; +OMEGCAP4 PO; +PRED1TABL PO
== END ==
LOC: M RAD 16:39
PROVIDERS: ATTEND Urology
DX: Z85.528 Personal history of other malignant neoplasm of kidney (principal)

== ENCOUNTER → 2023-10-29 | Outpatient (CLI) | payer BC ==
[2023-10-29 13:26] LABS: CHOLESTEROL RISK RATIO 2.58 (<5); HDL CHOLESTEROL 64.9 MG/DL (>40); LDL CHOLESTEROL 64.9 MG/DL (<100); NON-HDL-C 103.1 MG/DL
[2023-10-29 13:29] LABS: THYROID STIMULATING HORMONE 0.706 uIU/ML (0.55-4.78)
== END ==
LOC: M PLALAB 09:52
PROVIDERS: ATTEND Nurse Practitioner Adult Health
DX: E03.9 Hypothyroidism, unspecified (principal); E78.2 Mixed hyperlipidemia

== ENCOUNTER → 2024-01-22 | Outpatient (CLI) | payer BC ==
[2024-01-22 13:48] LABS: BASO # 0.1 10^3/uL (0.0-0.2); EOS # 0.1 10^3/uL (0.0-0.5); EOS % 1.6 % (0.0-3.0); HEMATOCRIT 41.3 % (36.0-47.0); HEMOGLOBIN 13.3 g/dl (12.0-15.5); LYMPH # 1.6 10^3/uL (1.5-5.0); MEAN CORPUSCULAR HGB CONC 32.2 g/dl (32.0-36.5); MEAN CORPUSCULAR VOLUME 96.3 fl (80.0-96.0); MONO # 0.9 10^3/uL (0.0-0.8); MONO % 10.5 % (2.0-8.0); NEUTROPHILS # 5.6 10^3/uL (1.5-8.5); NEUTROPHILS % 67.3 % (36.0-66.0); PLATELET COUNT, AUTOMATED 244 10^3/uL (150-450); RED BLOOD COUNT 4.29 10^6/uL (4.00-5.40); WHITE BLOOD COUNT 8.3 10^3/uL (4.0-10.0)
[2024-01-22 14:08] LABS: ALBUMIN 3.8 G/DL (3.2-5.2); BILIRUBIN,TOTAL 0.7 MG/DL (0.3-1.2); CALCIUM LEVEL 9.9 MG/DL (8.5-10.1); CREATININE FOR GFR 1.93 MG/DL (0.55-1.30); GLOMERULAR FILTRATION RATE 28.3 (>51); POTASSIUM SERUM 5.2 MMOL/L (3.5-5.1); TOTAL PROTEIN 6.6 G/DL (5.7-8.2)
== END ==
LOC: M PLALAB 10:14
PROVIDERS: ATTEND Nurse Practitioner Family
DX: Z79.899 Other long term (current) drug therapy (principal)

== ENCOUNTER → 2024-02-14 | Outpatient (CLI) | payer BC ==
[2024-02-14 08:25] LABS: BASO # 0.1 10^3/uL (0.0-0.2); BASO % 0.9 % (0.0-1.0); EOS # 0.1 10^3/uL (0.0-0.5); EOS % 1.9 % (0.0-3.0); HEMATOCRIT 37.1 % (36.0-47.0); HEMOGLOBIN 12.3 g/dl (12.0-15.5); LYMPH % 29.1 % (24.0-44.0); MEAN CORPUSCULAR HEMOGLOBIN 31.4 pg (27.0-33.0); MEAN CORPUSCULAR HGB CONC 33.2 g/dl (32.0-36.5); MEAN CORPUSCULAR VOLUME 94.6 fl (80.0-96.0); MONO # 0.6 10^3/uL (0.0-0.8); MONO % 9.6 % (2.0-8.0); NEUTROPHILS # 3.9 10^3/uL (1.5-8.5); NEUTROPHILS % 58.1 % (36.0-66.0); PLATELET COUNT, AUTOMATED 242 10^3/uL (150-450); RED BLOOD COUNT 3.92 10^6/uL (4.00-5.40); WHITE BLOOD COUNT 6.7 10^3/uL (4.0-10.0)
[2024-02-14 08:43] LABS: ALBUMIN 3.4 G/DL (3.2-5.2); BILIRUBIN,TOTAL 0.7 MG/DL (0.3-1.2); CALCIUM LEVEL 8.9 MG/DL (8.3-10.6); CREATININE FOR GFR 1.74 MG/DL (0.55-1.30); GLOMERULAR FILTRATION RATE 31.8 (>45); POTASSIUM SERUM 4.1 MMOL/L (3.5-5.1); TOTAL PROTEIN 6.1 G/DL (5.7-8.2)
== END ==
LOC: M LAB 07:38
PROVIDERS: ATTEND Nurse Practitioner Family
DX: Z79.899 Other long term (current) drug therapy (principal)

== ENCOUNTER → 2024-05-05 | Outpatient (CLI) | payer BC, OTHER ==
[~2024-05-05] MED LIST changes: +RENATAB5 PO
[2024-05-05 15:37] LABS: FREE T4 1.31 NG/DL (0.89-1.76)
[2024-05-05 15:38] LABS: ALBUMIN 3.5 G/DL (3.2-5.2); BILIRUBIN,TOTAL 0.5 MG/DL (0.3-1.2); CALCIUM LEVEL 9.4 MG/DL (8.3-10.6); CHOLESTEROL RISK RATIO 3.52 (<5); CREATININE FOR GFR 1.81 MG/DL (0.55-1.30); GLOMERULAR FILTRATION RATE 30.4 (>45); HDL CHOLESTEROL 49.4 MG/DL (>40); LDL CHOLESTEROL 82.6 MG/DL (<100); MAGNESIUM LEVEL 2.1 MG/DL (1.8-2.4); NON-HDL-C 124.6 MG/DL; POTASSIUM SERUM 4.7 MMOL/L (3.5-5.1); THYROID STIMULATING HORMONE 0.722 uIU/ML (0.55-4.78); TOTAL PROTEIN 6.6 G/DL (5.7-8.2)
== END ==
LOC: M PLALAB 09:26
PROVIDERS: ATTEND Nurse Practitioner Adult Health
DX: E78.2 Mixed hyperlipidemia (principal)

== ENCOUNTER → 2024-06-03 | Outpatient (CLI) | payer BC | LOC: M WHC 09:18 | PROVIDERS: ATTEND Nurse Practitioner Family | DX: Z12.31 Encounter for screening mammogram for malignant neoplasm of breast (principal) ==

== ENCOUNTER → 2025-05-04 | Outpatient (CLI) | payer BC ==
[~2025-05-04] MED LIST changes: +AMLO1TAB24; -EZET10TA21 PO; +EZET10TA57 PO; +PRED-1142; +PRED-1142 PO; -PRED1TABL; -PRED1TABL PO
[2025-05-04 11:28] LABS: ALT/SGPT 21.0 U/L (7.0-40); AST/SGOT 19.0 U/L (<34); CALCIUM LEVEL 9.0 MG/DL (8.3-10.6); CARBON DIOXIDE LEVEL 22.0 MMOL/L (20-31); CHLORIDE LEVEL 115.0 MMOL/L (98-107); CHOLESTEROL LEVEL 173.0 MG/DL (<200); CHOLESTEROL RISK RATIO 3.19 (<5); CREATININE FOR GFR 1.55 MG/DL (0.55-1.30); FREE T4 1.22 NG/DL (0.89-1.76); GLOMERULAR FILTRATION RATE 37.9 (>45); LDL CHOLESTEROL 74.5 MG/DL (<100); NON-HDL-C 118.9 MG/DL; POTASSIUM SERUM 4.2 MMOL/L (3.5-5.1); SODIUM LEVEL 144.0 MMOL/L (136-145); TRIGLYCERIDES LEVEL 222.0 MG/DL (<150)
== END ==
LOC: M PLALAB 08:08
PROVIDERS: ATTEND Nurse Practitioner Adult Health
DX: E03.9 Hypothyroidism, unspecified (principal)

== ENCOUNTER → 2025-05-20 | Outpatient (CLI) | payer BC | LOC: M WUC 10:56 | PROVIDERS: ATTEND Nurse Practitioner Adult Health | DX: M54.32 Sciatica, left side (principal) ==

== ENCOUNTER → 2025-06-04 | Outpatient (CLI) | payer BC | LOC: M WHC 08:47 | PROVIDERS: ATTEND Nurse Practitioner Adult Health | DX: Z78.0 Asymptomatic menopausal state (principal); Z12.31 Encounter for screening mammogram for malignant neoplasm of breast; R92.313 Mammographic fatty tissue density, bilateral breasts; M85.80 Other specified disorders of bone density and structure, unspecified site ==

== ENCOUNTER → 2025-06-12 | Outpatient (CLI) | payer BC | LOC: M RAD 16:38 | PROVIDERS: ATTEND Nurse Practitioner Adult Health | DX: J43.9 Emphysema, unspecified (principal); Z87.891 Personal history of nicotine dependence ==